=== PATIENT | female | born 2000 | race Hispanic/Latino ===

== ENCOUNTER 2025-05-30 19:02 | Emergency (ER) | payer SELFPAY ==
[2025-05-30 19:06] VITALS: BP 127/78
[2025-05-30 19:45] LABS: Hematocrit 35.3 % (37.0-47.0); Hemoglobin 11.5 g/dL (12.0-16.0); Mean Corp Hgb Conc. 32.6 g/dL (33.0-37.0); Mean Corpuscular Volume 83.3 fL (81.0-99.0); Nucleated Red Blood Cells % 0 %; Platelet Count 331 10^3/uL (130-400); Red Cell Dist. Width 15.6 % (11.5-14.5)
[2025-05-30 20:04] LABS: ALT (SGPT) 14 U/L (0-35); AST (SGOT) 14 U/L (14-36); Albumin 4.8 g/dl (3.5-5.0); Alkaline Phosphatase 86 U/L (38-126); Blood Urea Nitrogen 8 mg/dl (7-17); Calcium 9.3 mg/dl (8.4-10.2); Carbon Dioxide 23 mmol/L (22-30); Chloride 104 mmol/L (98-107); Glucose 93 mg/dl (70-99); Potassium 4.1 mmol/L (3.5-5.1); Sodium 137 mmol/L (135-145); Total Protein 7.8 g/dl (6.3-8.2); eGFR > 60.00
[2025-05-30 20:43] VITALS: BP 124/72
[2025-05-30 20:47] VITALS: BMI 29.4
--- NOTE | 2025-05-30 21:03 | ED.GENMED ---
History of Present Illness
General
Chief Complaint: Swelling
Source: patient
Time Seen by Provider: 05/30/25 20:44
History of Present Illness
History of Present Illness:
[id number]
24-year-old female with no significant past medical history presenting to the emergency department for evaluation at the request of her dentist to perform dental extraction to the left lower mandible 5 days ago, yesterday patient started with
increased pain and swelling and despite taking 2 doses of amoxicillin (bought this [id number] at a [facility]) and Tylenol at home she has not had any relief. Patient points to the left lateral mandible/neck as to the area where she is
having most of her pain. She is unaware of any fevers at home. Has had some diminished p.o. intake as well. No other symptoms at time.
Past History
Past History
ED Past Medical History: None
ED Past Surgical History: None
Social History
Tobacco: Non-smoker
Alcohol: None
Drug: None
Personal: Single
Living: with family
Review of Systems
Review of Systems
All Other Systems: ROS reviewed and negative except as documented in HPI and ROS
Phy Exam
Physical Exam
Physical Exam:
GENERAL: Alert , in no apparent distress
EYE: conjunctiva clear
Head: Normocephalic atraumatic
NECK: Supple, lymphadenopathy to the left submandibular region with tenderness in this area
ENT: mmm. 2-3 finger trismus but no stridor, tolerating secretions without difficulty. No tonsillar exudates or uvular deviation. Tongue midline, no elevation of the tongue floor
LUNGS: no acute respiratory distress
NEUROLOGICAL: Alert and oriented
SKIN: Warm and dry, skin intact.
MUSCULOSKELETAL: well perfused.
PSYCH: Normal and appropriate interaction.
Scores
Heart Failure Risk
Heart Failure Risk Score: Not Applicable
Heart Score for Chest Pain Patients
STEMI patient?: Not applicable
Withdrawal Assessment of Alcohol
Withdrawal Assessment Completed?: Not applicable
Course
Orders/Labs/Results
Orders:
Orders
05/30/25 19:20
CMP [Comprehensive Metabolic Panel] Urgent
Complete Blood Count/With Diff Urgent
05/30/25 21:03
CT Neck With Iv Contrast Urgent
Comment:
Reason For Exam: left sided facial edema/recent tooth extraction
0.9% Sodium Chloride 1000 ml [Nss] 1,000 ml IV BOLUS
Ketorolac [Toradol] 30 mg IV NOW STA
Abnormal Lab Results
05/30/25
19:20
WBC 17.8 H 10^3/uL
(4.8-10.8)
Hgb 11.5 L g/dL
(12.0-16.0)
Hct 35.3 L %
(37.0-47.0)
MCHC 32.6 L g/dL
(33.0-37.0)
RDW 15.6 H %
(11.5-14.5)
Abs Immat Gran (auto) 0.1 H 10^3/uL
(0-0.05)
Absolute Neuts (auto) 13.6 H 10^3/uL
(1.4-6.5)
Absolute Monos (auto) 1.6 H 10^3/uL
(0.1-0.6)
Neutrophils % 76.4 H %
(42.2-75.2)
Lymphocytes % 14.2 L %
(20.5-51.1)
05/30/25 19:20
05/30/25 19:20
Vital Signs
Initial and Last Documented VS:
Initial Vital Signs
Temp Pulse Resp BP Pulse Ox
98.0 F 98 20 127/78 98
05/30/25 19:06 05/30/25 19:06 05/30/25 19:06 05/30/25 19:06 05/30/25 19:06
Last Documented Vital Signs
Temp Pulse Resp BP Pulse Ox
98.0 F 64 18 102/56 99
05/30/25 19:06 05/30/25 22:57 05/30/25 22:57 05/30/25 22:57 05/30/25 22:57
MDM/Problems Addressed
Differential Diagnosis Includes:
Dental abscess
Cellulitis
Peritonsillar abscess
Retropharyngeal abscess
Owen's angina
Salivary stone
Parotitis
MDM/Problems Addressed:
24-year-old female presenting to the ER for evaluation of pain to the left nipple/neck area in the setting of recent dental work. Afebrile here. Labs initiated in triage to show a leukocytosis of 17,000. Will obtain CT scan to evaluate for
possible drainable collection. Toradol ordered for pain as well as IV fluids. Disposition pending
*Radiology
Radiology exam reviewed: radiology read reviewed
*Pulse Oximetry
SaO2: 99
Oxygen Mode of Delivery: Room air
Patient hypoxic: no
*Critical Care Note
Total Time (30-74mins, 75-104mins- exclusive of procedures): Not Applicable
Patient Management
Escalation/DeEscalation of care consider admission/obs:
IA151 language line used for interpretation
CT scan shows left mandibular soft tissue inflammation but no drainable fluid collection. Patient notes that she is feeling much improved following the IV medications administered and fluids. I did offer the patient to be admitted for further
evaluation however she declines this and would like to be discharged home. Will initiate patient on a course of clindamycin. Continue NSAIDs/warm compresses for pain control. Patient will follow-up with her dentist. Aware of return precautions
to the ER.
ED Attending Note
-
Portions of this chart may have been created with voice recognition software.� Occasional wrong word or��sound alike� substitutions may have occurred due to the inherent limitations of voice recognition software.
Discharge Plan
Departure
Patient Disposition: Home (Routine Discharge)
Date of Disposition: 05/30/25
Time of Disposition: 23:40
Patient with high blood pressure during this ER visit?: No
Discharge Problem:
Cellulitis of face
Instructions: Cellulitis (skin infection) in adults - Discharge instructions
Prescriptions:
New
clindamycin HCl [Cleocin HCl] 300 mg capsule
600 mg PO BID 10 Days Qty: 40 0RF
naproxen 500 mg tablet
500 mg PO BID PRN (Reason: Pain) Qty: 15 0RF
Referrals:
NONE,* [Family Provider, Internal Medicine]
Interventions
Interventions:
*Risk Screen - Suicide Last Done: 05/30/25 20:46
*General Assessment Last Done: 05/30/25 19:06
*Neglect/Abuse Screening Last Done: 05/30/25 20:46
*ED- Fall Risk Assessment Last Done: 05/30/25 20:46
*ED COVID-19 Vaccine History Last Done: 05/30/25 20:46
ED- Cardiac Assessment Last Done: 05/30/25 20:53
ED- Pulmonary Assessment Last Done: 05/30/25 20:53
ED-Skin Assessment Last Done: 05/30/25 20:53
Discharge Date and Time
Print Language: LITHUANIAN
[2025-05-30] MEDS: TORADOL 30 MG IV (21:24)
[2025-05-30] MEDS: NSS 1000 IV (21:24)
[2025-05-30 22:57] VITALS: BP 102/56
== END 2025-05-30 23:52 | disposition home or self-care (01) ==
LOC: EMR 19:02
PROVIDERS: Emergency Medicine; EMERGENCY PHYSICIAN Emergency Medicine
DX: L03.211 Cellulitis of face (principal)
CPT/HCPCS: 99284; 70491; 80053; 85025; Q9967